=== PATIENT | female | born 1960 | race Caucasian/White ===

== ENCOUNTER 2021-02-25 20:37 | Outpatient (CLI) | payer OTHER | END 2021-02-25 20:38 | disposition EMS.NT | LOC: EMS 20:37 | DX: Z03.89 Encounter for observation for other suspected diseases and conditions ruled out (principal) ==

== ENCOUNTER 2021-02-25 21:52 | Emergency (ER) | payer OTHER ==
[2021-02-25 22:06] VITALS: BP 156/95
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
== END 2021-02-25 23:28 | disposition home or self-care (01) ==
LOC: ED 21:52
DX: Z04.1 Encounter for examination and observation following transport accident (principal); V47.0XXA Car driver injured in collision with fixed or stationary object in nontraffic accident, initial encounter; Y92.410 Unspecified street and highway as the place of occurrence of the external cause; F10.10 Alcohol abuse, uncomplicated
CPT/HCPCS: 99281